=== PATIENT | male | born 1990 | race Two or more races ===

== ENCOUNTER 2019-05-26 02:18 | Emergency (ER) | payer SELFPAY ==
[~2019-05-26] VITALS: Ht 177.8 cm; Wt 77.1 kg
[2019-05-26 02:33] VITALS: BP 121/71
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
== END 2019-05-26 02:40 ==
LOC: EMR 02:40
DX: S09.90XA Unspecified injury of head, initial encounter (principal); S40.212A Abrasion of left shoulder, initial encounter; Y04.2XXA Assault by strike against or bumped into by another person, initial encounter; Y92.9 Unspecified place or not applicable
CPT/HCPCS: 99281